=== PATIENT | female | born 1980 | race Caucasian/White ===

== ENCOUNTER 2021-09-13 10:04 | Outpatient (CLI) | payer BC ==
[2021-09-13 17:30] LABS: SARS-CoV-2 PCR by NAA Not Detected (NotDetected)
== END 2021-09-13 10:05 | disposition home or self-care (01) ==
LOC: CSHLAB 10:04
PROVIDERS: ATTEND Student in an Organized Health Care Education/Training Program
DX: Z20.822 Contact with and (suspected) exposure to COVID-19 (principal)
CPT/HCPCS: U0003; U0005

== ENCOUNTER 2021-09-16 05:30 | Inpatient (IN) | payer BC ==
[2021-09-16] MEDS ORDERED: NS w/ Oxytocin 30 units 500 ML ONE ×2 (08:03→15:14)
[2021-09-16 08:50] VITALS: BMI 28.1
[2021-09-16 09:13] LABS: Hemoglobin 8.4 g/dL (12.0-15.5); Mean Corpuscular HGB CONC 28.7 g/dL (32.0-36.0); Mean Corpuscular Hemoglobin 19.4 pg (27.0-33.0); Mean Corpuscular Volume 67.5 fl (81.6-98.3); Platelet Count 188 10x3/uL (150-450); RBC Distribution Width 23.2 % (11.5-14.5); Red Blood Cell (RBC) Count 4.34 10x6/uL (3.90-5.03); White Blood Cell (WBC) Count 8.8 10x3/uL (3.5-10.5)
[2021-09-16] MEDS ORDERED: Promethazine HCl 25 MG/ML VIAL IM PRN ×3 (09:30→16:38)
[2021-09-16] MEDS ORDERED: Butorphanol Tartrate 1 MG/ML VIAL SLOW IVP PRN (09:30)
[2021-09-16] MEDS ORDERED: hydrALAZINE 20 MG/ML VIAL SLOW IVP PRN ×2 (09:30→16:38)
[2021-09-16] MEDS ORDERED: Lactated Ringer's 1,000 ML IV SCH (09:30)
[2021-09-16] MEDS ORDERED: Ondansetron PF 4 MG/2 ML Vial IVP PRN ×3 (09:30→16:38)
[2021-09-16] MEDS ORDERED: Acetaminophen 500 MG TAB PO PRN (09:30)
[2021-09-16 09:32] LABS: Syphilis Antibody Nonreactive (Nonreactive); Syphilis Antibody Index 0.04 S/CO (<1.00 Non-Reactive)
[2021-09-16 09:33] LABS: Hep B Surf Ag Non-Reactive S/CO (NonReactive)
[2021-09-16 09:44] LABS: HBSAg Index 0.16 S/CO (0-0.99)
[2021-09-16] MEDS ORDERED: Fentanyl 2 mcg/Bup 0.1% Cadd 100 ML ONE (11:36)
[2021-09-16] MEDS ORDERED: diphenhydrAMINE 50 MG/ML VIAL IVP PRN (12:11)
[2021-09-16] MEDS ORDERED: Hydrocerin (Eucerin) Cream 120 gm Jar TOP PRN (12:11)
[2021-09-16] MEDS ORDERED: Lactated Ringer's 500 ML IV PRN (12:11)
[2021-09-16] MEDS ORDERED: ePHEDrine Sulfate 50 MG/10 ML VIAL SLOW IVP PRN (12:11)
[2021-09-16] MEDS ORDERED: Acetaminophen 325 MG TAB PO PRN (12:11)
[2021-09-16] MEDS ORDERED: Naloxone HCl 0.4 mg/ml Vial IVP PRN ×2 (12:11)
[2021-09-16] MEDS ORDERED: Fentanyl 2 mcg/Bupivacaine 0.1% Cassette 100 ML EPIDURAL SCH (12:15)
[2021-09-16] MEDS ORDERED: Communication Order-Pharmacy FS SCH (12:15)
[2021-09-16] MEDS ORDERED: HYDROcodone/Acetaminophen 5/325 mg Tablet PO PRN ×2 (16:38)
[2021-09-16] MEDS ORDERED: Boostrix 0.5 ML (Tdap) VIAL IM ONE (16:38)
[2021-09-16] MEDS ORDERED: Zolpidem Tartrate 5 MG TAB PO PRN (16:38)
[2021-09-16] MEDS ORDERED: Lanolin Ointment 7 GM TUBE TOP PRN (16:38)
[2021-09-16] MEDS ORDERED: Milk Of Magnesia 30 ML UDCUP PO PRN (16:38)
[2021-09-16] MEDS ORDERED: Bisacodyl 10 MG SUPP PR PRN (16:38)
[2021-09-16] MEDS ORDERED: Preparation H Ointment 28 GM TUBE PR PRN (16:38)
[2021-09-16] MEDS ORDERED: Benzocaine-Menthol 82.5 ML CAN TOP PRN (16:38)
[2021-09-16] MEDS ORDERED: diphenhydrAMINE 25 MG CAP PO PRN (16:38)
[2021-09-16] MEDS: Ibuprofen 800 MG TAB PO SCH (21:23)
[2021-09-16] MEDS: Ferrous Sulfate 325 MG TAB PO SCH (21:23)
[2021-09-16] MEDS: Docusate 100 MG CAP PO SCH (21:23)
[2021-09-17 04:42] LABS: Hemoglobin 8.1 g/dL (12.0-15.5)
[2021-09-17] MEDS: Ibuprofen 800 MG TAB PO SCH ×2 (06:12→15:24)
[2021-09-17] MEDS: Docusate 100 MG CAP PO SCH (08:43)
[2021-09-17] MEDS: Ferrous Sulfate 325 MG TAB PO SCH (08:43)
[2021-09-17] MEDS ORDERED: Prenatal Vitamin 1 TAB PO SCH (09:00)
[2021-09-17 11:10] VITALS: BP 108/70; TEMP 97.7
== END 2021-09-17 16:45 | disposition home or self-care (01) | DRG 807 ==
LOC: CSHLD 05:38 → CSHPP 17:10
PROVIDERS: ADMIT Student in an Organized Health Care Education/Training Program; ATTEND Student in an Organized Health Care Education/Training Program
PROC: 10E0XZZ Delivery of Products of Conception, External Approach (ICD-10-PCS; principal; 2021-09-16)
PROC: 0HQ9XZZ Repair Perineum Skin, External Approach (ICD-10-PCS; 2021-09-16)
PROC: 10907ZC Drainage of Amniotic Fluid, Therapeutic from Products of Conception, Via Natural or Artificial Opening (ICD-10-PCS; 2021-09-16)
PROC: 3E033VJ Introduction of Other Hormone into Peripheral Vein, Percutaneous Approach (ICD-10-PCS; 2021-09-16)
DX: O99.02 Anemia complicating childbirth (principal); Z37.0 Single live birth; Z91.14 Patient's other noncompliance with medication regimen; Z3A.39 39 weeks gestation of pregnancy; O70.0 First degree perineal laceration during delivery; D50.9 Iron deficiency anemia, unspecified
CPT/HCPCS: 36415; 85014; 85018; 85027; 86780; 86850; 86900; 86901; 87340; J2590; U0003; U0005

== ENCOUNTER 2021-11-24 10:53 | Day surgery (SDC) | payer BC ==
[2021-11-19 11:30] LABS: Hemoglobin 10.7 g/dL (12.0-15.5); Mean Corpuscular Hemoglobin 21.2 pg (27.0-33.0); Mean Corpuscular Volume 70.7 fl (81.6-98.3); Platelet Count 240 10x3/uL (150-450); RBC Distribution Width 21.1 % (11.5-14.5); Red Blood Cell (RBC) Count 5.05 10x6/uL (3.90-5.03); White Blood Cell (WBC) Count 4.4 10x3/uL (3.5-10.5)
[2021-11-19 11:54] LABS: BHCG - Serum Negative (NEGATIVE); Pregs Control Background? CLEAR/WHITE (CLR/WHITE); Pregs Control Bar Appear? YES (CONTROL BAR)
[2021-11-19 20:02] LABS: SARS-CoV-2 PCR by NAA Not Detected (NotDetected)
[2021-11-24] MEDS ORDERED: CeleCOXIB 100 MG CAP ONE (11:04)
[2021-11-24] MEDS ORDERED: Lidocaine 1% MPF 2 ML VIAL ONE (11:04)
[2021-11-24] MEDS ORDERED: Bupivacaine PF 0.5% 30 ML VIAL ONE (11:52)
[2021-11-24] MEDS ORDERED: EPINEPHrine 1 MG/ML AMP ONE (11:52)
[2021-11-24] MEDS ORDERED: Lidocaine 1% PF 5 ML VIAL ONE (12:04)
[2021-11-24] MEDS ORDERED: Fentanyl 100 MCG/2 ML VIAL ONE ×2 (12:04→14:12)
[2021-11-24] MEDS ORDERED: Rocuronium Bromide 10 MG/ML (10ML VIAL) ONE (12:04)
[2021-11-24] MEDS ORDERED: PROPOFOL 20 ML ONE (12:04)
[2021-11-24] MEDS ORDERED: Lidocaine 2% Jelly 5 ML TUBE ONE (12:07)
[2021-11-24] MEDS ORDERED: ceFAZolin 2 GM/Dextrose 50 ML IVPB ONE (12:22)
[2021-11-24] MEDS ORDERED: ePHEDrine Sulfate 50 MG/10 ML VIAL ONE (12:52)
[2021-11-24] MEDS ORDERED: Glycopyrrolate 0.2 MG/ML 5 ML SYRINGE ONE (12:59)
[2021-11-24] MEDS ORDERED: Ondansetron PF 4 MG/2 ML Vial ONE (13:19)
[2021-11-24] MEDS ORDERED: Dexamethasone 20 MG/5 ML VIAL ONE (13:19)
[2021-11-24] MEDS ORDERED: Ketorolac Tromethamine 30 MG/ML VIAL ONE (13:19)
== END 2021-11-24 15:30 | disposition home or self-care (01) ==
LOC: CSHSDC 10:53
PROVIDERS: ATTEND Student in an Organized Health Care Education/Training Program
DX: Z30.2 Encounter for sterilization (principal); N92.0 Excessive and frequent menstruation with regular cycle; Z80.3 Family history of malignant neoplasm of breast; Z80.41 Family history of malignant neoplasm of ovary; Z20.822 Contact with and (suspected) exposure to COVID-19
CPT/HCPCS: 84703; 85027; 86850; 86900; 86901; 88305; 88307; J0171; J0690; J1100; J1885; J2405; J2704; J3010; S0020; U0003; U0005